=== PATIENT | male | born 1955 | race Hispanic/Latino ===

== ENCOUNTER 2018-04-01 17:00 | Emergency (ER) | payer OTHER ==
[~2018-04-01] VITALS: Ht 172.7 cm; Wt 72.6 kg
[2018-04-01] MEDS ORDERED: ASPIRIN 81 MG CHEW TAB PO ONE (17:30)
[2018-04-01 17:45] LABS: BASOPHILS % 0.3 % (0.0-1.0); EOSINOPHILS # (AUTO) 0.1 (0.0-0.4); EOSINOPHILS % 2.1 % (0.0-6.0); HEMATOCRIT 47.5 % (38.2-49.6); HEMOGLOBIN 15.3 g/dL (14.0-18.0); LYMPHOCYTES % 16.7 % (18.0-39.1); MEAN CORPUSCULAR HEMOGLOBIN 26.3 pg (28-32); MEAN CORPUSCULAR HGB CONC 32.2 g/dL (31-35); MEAN CORPUSCULAR VOLUME 81.6 fL (81-99); MONOCYTES # (AUTO) 0.6 (0.2-0.8); NEUTROPHILS % 69.6 % (38.7-80.0); PLATELET COUNT 300 x10e3/uL (140-360); RED BLOOD COUNT 5.82 x10e6/uL (4.3-5.7); RED CELL DISTRIBUTION WIDTH 15.4 % (11.7-14.4)
[2018-04-01 18:07] LABS: ALANINE AMINOTRANSFERASE 17 IU/L (0-55); ALKALINE PHOSPHATASE 104 IU/L (40-150); ANION GAP 17.2 mmol/L (8-16); BLOOD UREA NITROGEN 10 mg/dL (7-26); BUN/CREATININE RATIO 10 (6-25); CALCIUM 9.7 mg/dL (8.4-10.2); CARBON DIOXIDE 24 mmol/L (22-29); CHLORIDE 101 mmol/L (98-107); CREATINE KINASE 241 IU/L (30-200); CREATININE, SERUM 1.05 mg/dL (0.72-1.25); EST GLOMERULAR FILTRATION RATE > 60 ML/MIN (60-); GLUCOSE 104 mg/dL (74-118); POTASSIUM 4.2 mmol/L (3.5-5.1); SODIUM 138 mmol/L (136-145)
[2018-04-01 18:08] LABS: INR 0.97; PROTHROMBIN TIME 13.8 seconds (11.9-14.5)
[2018-04-01 18:09] LABS: PARTIAL THROMBOPLASTIN TIME 29.9 seconds (23.8-35.5)
--- NOTE | 2018-04-01 18:52 | Diagnostic Imaging Report ---
EXAMINATION: CHEST SINGLE (NOT PORTABLE) INDICATION: ^CHEST PAIN ^[id number] ^1810 ^Y COMPARISON: None FINDINGS: TUBES and LINES: None. LUNGS: Mild bilateral perihilar bronchial thickening. There is no evidence of pneumonia or pulmonary edema. PLEURA: No pleural effusion or pneumothorax. HEART AND MEDIASTINUM: The cardiomediastinal silhouette is unremarkable. BONES AND SOFT TISSUES: No acute osseous lesion. Soft tissues are unremarkable. UPPER ABDOMEN: No free air under the diaphragm. IMPRESSION: Mild bilateral perihilar bronchial thickening. Signed by: Dr. Maite Ramos M.D. on 04/01/2018 6:49 PM
[2018-04-01] MEDS ORDERED: ALBUTEROL/IPRATROPIUM 3 ML NEB NEB ONE (20:15)
[2018-04-01] MEDS ORDERED: PREDNISONE 20 MG TAB PO NR (20:15)
[2018-04-01] MEDS ORDERED: PREDNISONE 20 MG TAB ONE (20:17)
--- NOTE | 2018-04-01 20:23 | NUR ---
RT NOTIFIED FOR NEB
--- NOTE | 2018-04-01 21:12 | NUR ---
states feels better after medications, awake alert skin w/d resp nonlab. nad noted.
== END 2018-04-01 21:14 | disposition home or self-care (01) ==
LOC: ER 17:00
DX: R05 Cough (principal); R06.2 Wheezing; J15.9 Unspecified bacterial pneumonia
CPT/HCPCS: 36415; 71045; 80053; 82550; 82553; 83880; 84484; 85025; 85610; 85730; 93005; 94640; 99284; J7512

== ENCOUNTER 2019-02-08 14:46 | Observation (INO) | payer MEDICARE, OTHER ==
[~2019-02-08] VITALS: Ht 172.7 cm; Wt 70.4 kg
--- OUTSIDE RECORDS SUMMARY | 2019-02-08 14:48 | XMS REPORT ---
Author Author [facility] Organization [facility] Address Unknown Phone Unavailable Care Team Providers Care Commercial Technician Name Role Phone Ajit HEATH Unavailable Unavailable Payers Payer Name Policy Type Policy Number Effective Date Expiration Date Problems This patient has no known problems. Allergies, Adverse Reactions, Alerts Allergy Name Allergy Type Status Severity Reaction(s) Onset Date Inactive Date Treating Clinician Comments No Known Allergies DA Active U 2018-04-07 00:00:00 Medications This patient has no known medications. Results Test Description Test Time Test Comments Text Results Atomic Results Result Comments CHEST SINGLE (NOT PORTABLE) 2018-04-01 18:48:[address] [address] Patient Name: YANET WEEKS MR #: [id number] : 1955 Age/Sex: 62/M Req #: [id number] Adm Physician: Ordered by: SALINAS HEATH MD Report #: [id number] Location: ER Room/Bed: Procedure: [id number] DX/CHEST SINGLE (NOT PORTABLE) Exam Date: 04/01/18 Exam Time: 1809 REPORT STATUS: Signed EXAMINATION: CHEST SINGLE (NOT PORTABLE) INDICATION: CHEST PAIN [id number] 181 Y COMPARISON: None FINDINGS: TUBES and LINES: None. LUNGS: Mild bilateral perihilar bronchial thickening. There is no evidence of pneumonia or pulmonary edema. PLEURA: No pleural effusion or pneumothorax. HEART AND MEDIASTINUM: The cardiomediastinal silhouette is unremarkable. BONES AND SOFT TISSUES: No acute osseous lesion. Soft tissues are unremarkable. UPPER ABDOMEN: No free air under the diaphragm. IMPRESSION: Mild bilateral perihilar bronchial thickening. Signed by: Dr. Maite Martinez M.D. on 04/01/2018 6:49 PM Dictated By: SILVER MARTINEZ MD, MD 48 Transcribed By: ROXY on 04/01/181848 COPY TO: SALINAS HEATH MD
[2019-02-08] MEDS ORDERED: SODIUM CHLORIDE FLUSH 10 ML SYR INJ PRN (16:00)
--- NOTE | 2019-02-08 16:20 | Diagnostic Imaging Report ---
EXAMINATION: Head and face CT without contrast. HISTORY: Dizziness and headache, vertigo, asthma COMPARISON: None. TECHNIQUE: Multidetector axial images were obtained without contrast from the foramen magnum to the vertex and over the face. The images were reconstructed using brain and bone algorithms. Thin section brain images were reformatted into coronal and sagittal planes. Dose modulation, iterative reconstruction, and/or weight based adjustment of the mA/kV was utilized to reduce the radiation dose to as low as reasonably achievable. Head CT findings: Skull: No lytic or blastic lesions. No fractures. Parenchyma: Normal. No mass, hemorrhage or CT evidence of acute vascular insult. Brain volume: Normal for age. Ventricles: No hydrocephalus or displacement. Arteries: No density suggestive of thrombus. Dural sinuses: No abnormal density. Extra-axial spaces: No abnormal density. Foramen magnum: No mass, Chiari malformation, or basilar invagination. Sella: No obvious mass. Maxillofacial CT findings: Paranasal sinuses: Complete opacification of the bilateral frontal, ethmoid, maxillary and sphenoid sinuses, with associated minimal bone remodeling and expansion, there is also opacification of the bilateral nasal cavities with near complete obstruction dorsally, with possible polyposis extending through the caudate on the right side into the nasopharynx. In some areas the opacification is hyperdense, which may represent inspissated secretions versus noninvasive allergic fungal sinusitis. Paranasal sinuses drainage pathways: Remodeling with widening and complete opacification of the bilateral orchiectomy, frontonasal and particularly the sphenoid ethmoidal recesses. Nasal septum and nasal cavities: Right-sided nasal septal deviation. Possible remote fracture with a small bone defect along the anterior nasal septum. A large bone spur extending from the nasal posterior nasal septum into the right posterior nasal cavity, which could interfere with endoscopic nasal surgery. Bones: Unremarkable. Facial soft tissues: Unremarkable. Orbits contents: Unremarkable. Anatomic variations: No significant anatomic variations. Teeth: No acute abnormality of the visualized teeth. IMPRESSION: Head CT: No intracranial abnormalities. Face CT: 1. Severe pansinusitis and probable sinonasal polyposis with obstruction of the nasal cavities mainly on the right side. 2. Prominent right posterior nasal septum deviation with bone spur in the right posterior nasal passage as detailed above. ENT evaluation is advised. Signed by: Dr. Margaret Roberts M.D. on 02/08/2019 4:17 PM
--- NOTE | 2019-02-08 16:21 | NUR ---
Called [facility] for transport to room 287
[2019-02-08] MEDS ORDERED: ONDANSETRON HCL INJ 2MG/ML 2ML 2 MG/ML VIAL ONE (16:28)
[2019-02-08] MEDS ORDERED: METOPROLOL TARTRATE 50 MG TAB ONE (16:28)
[2019-02-08] MEDS: METOPROLOL TARTRATE 25 MG TAB PO SCH (16:30)
[2019-02-08] MEDS ORDERED: ONDANSETRON HCL INJ 2MG/ML 2ML 2 MG/ML VIAL IV STA (16:34)
[2019-02-08] MEDS ORDERED: ACETAMINOPHEN 325 MG TAB PO PRN (16:45)
[2019-02-08] MEDS ORDERED: DIPHENHYDRAMINE HCL 25 MG CAP PO PRN (16:45)
[2019-02-08] MEDS ORDERED: CLONIDINE HCL 0.1 MG TAB PO PRN (16:45)
[2019-02-08] MEDS ORDERED: ENALAPRILAT IV INJ 1.25 MG/ML VIAL IV PRN (16:45)
[2019-02-08] MEDS ORDERED: IBUPROFEN 200 MG TAB PO PRN (16:45)
--- NOTE | 2019-02-08 16:49 | NUR ---
Report called to JAYE Christian
--- NOTE | 2019-02-08 18:07 | NUR ---
PATIENT RECEIVED FROM [facility] PER STRETCHER. ALERT AND VERBALLY RESPONSIVE, ABLE TO ASSIST WITH TRANSFER FROM STRETCHER TO BED. SKIN WARM AND DRY TO TOUCH, RESPIRATION EVEN AND UNLABORED WITH A SMALL NODULE NOTED TO RIGHT NOSTRIL. ABDOMEN SOFT AND NON DISTENDED WITH + BS X 4 QUADS. YELLOW SOCKS APPLIED. BED IN LOWER POSITION, CALL LIGHT AT REACH.
[2019-02-08 18:09] VITALS: BP 161/92
[2019-02-08 18:10] VITALS: BP 161/92
--- NOTE | 2019-02-08 19:28 | NUR ---
Assessment done.no rep.distress.no pain voiced.aaox4.iv to left Ac #20 is patent.had a small amount of bm.bed locked and in lowest position.phone and call light within reach.instructed to call for assistance as needed.
[2019-02-08 20:00] VITALS: BP 137/79
[2019-02-08 21:00] VITALS: BP 137/79
[2019-02-08] MEDS ORDERED: ZOLPIDEM TARTRATE 5 MG TAB PO PRN (21:00)
--- NOTE | 2019-02-08 22:07 | NUR ---
No home med list noted.patient stated that will bring the list tomorrow morning.
[2019-02-09] VITALS (8 sets, daily range): BP systolic 120–139; BP diastolic 75–84
--- NOTE | 2019-02-09 04:00 | NUR ---
Resting in the bed.no pain voiced.stable condition.
[2019-02-09] MEDS: METOPROLOL TARTRATE 25 MG TAB PO SCH ×2 (04:45→18:17)
[2019-02-09 06:06] LABS: CHOL/HDL RATIO 5.3 (3.9-4.7)
--- NOTE | 2019-02-09 07:00 | NUR ---
Bed side shift report given to the oncoming rn.stable condition.
--- NOTE | 2019-02-09 07:01 | NUR ---
walking rounds completed with cage shift manager rn; pt in stable condition, will continue to monitor.
[2019-02-09] MEDS ORDERED: THEOPHYLLINE A200 MG PO (11:15)
[2019-02-09] MEDS ORDERED: OMEPRAZOLE40 MG PO (11:15)
[2019-02-09] MEDS ORDERED: MONTELUKAST SOD10 MG PO (11:15)
[2019-02-09] MEDS ORDERED: FLUTICASONE-SA1 EAC3 INH (11:15)
--- NOTE | 2019-02-09 14:27 | Diagnostic Imaging Report ---
History: Dizziness Comparison studies: None Technique: Sagittal T2; axial DWI, FLAIR, MPGR, T1, Coronal FLAIR. Intravenous contrast: None Findings: Scalp: Normal in signal . No masses . Bone marrow: Normal in signal intensity. Extra-axial: No masses, no fluid collections. Brain sulci: Appropriate for age. Ventricles: Normal in size . No hydrocephalus . Parenchyma: Subtle hazy T2/FLAIR hyperintensities of the bilateral parietal white matter, most commonly seen with mild chronic microvascular ischemic changes No masses, hemorrhage, acute or chronic vascular insults. Suprasellar region: No abnormalities. Craniocervical junction: No abnormalities. Patent foramen magnum. No Chiari one malformation. Vessels: Normal flow-voids in the arteries and sinuses. Diffuse occupation of the paranasal sinuses. IMPRESSION: 1. No acute intra-abnormalities. 2. Mild chronic microvascular ischemic changes of the white matter. 3. Pansinusitis Signed by: DR Anil Mcdonald M.D. on 02/09/2019 2:24 PM
[2019-02-09] MEDS ORDERED: MONTELUKAST SODIUM 10 MG TAB PO SCH (17:00)
--- NOTE | 2019-02-09 17:47 | Consultation ---
DATE OF CONSULTATION: 02/09/2019 CONSULTING PHYSICIAN: Dr. Du Chin. CHIEF COMPLAINT: Sinonasal problems and dizziness. HISTORY OF PRESENT ILLNESS: The patient is a 63-year-old male, who presented to the [facility] Emergency Room yesterday with 2 days history of dizziness. The dizziness is described as an imbalance sensation lasting all day, worse after arising. He denies otalgia, otorrhea, or any recent hearing changes. The patient notes that he has had 6 months history of worsening bilateral nasal obstruction associated with copious clear rhinorrhea from both nasal cavities. He denies epistaxis or facial pain. He has had no previous sinus or nasal surgery. PAST MEDICAL HISTORY: Sinonasal polyps. Asthma. GERD. ALLERGIES: HE HAS ALLERGIES TO PENICILLIN. MEDICATIONS (home): theophylline, montelukast, fluticasone nasal spray, fluticasone inhaler, ranitidine, and omeprazole. PAST SURGICAL HISTORY: Tonsillectomy. Right hip replacement. SOCIAL HISTORY: He is a nonsmoker and nondrinker. DIAGNOSTIC DATA: Review of the CT sinus performed yesterday revealed total opacification of all of the sinuses with soft tissue masses in both nasal cavities (consistent with polyps) with deviated septum to the right. There does not appear to be any overt bony dehiscence or any extension of sinonasal disease intracranially. PHYSICAL EXAMINATION: GENERAL: The patient appears of stated age, in no apparent distress. He is unable to breathe out of his nose. HEENT: Ear exam reveals thickened tympanic membranes, but with no overt evidence of infection. Nasal cavities revealed significant polyps filling both nasal cavities, but worse on the right than the left. Oral cavity, oropharynx is clear. NECK: Supple with full range of motion. Markos-Hallpike was negative. The patient experienced minimal lightheadedness after arising quickly. ASSESSMENT: 1. Bilateral nasal obstruction due to sinonasal polyposis. 2. Dizziness due to uncertain etiology. His dizziness symptoms appear clinically consistent with possible cardiovascular etiology though neurologic etiology or an inner ear pathology cannot be ruled out. RECOMMENDATIONS: 1. I recommend the patient follow up with me as an outpatient to further evaluate and manage the sinonasal disease. 2. Recommend further thorough cardiovascular and neurologic evaluations to evaluate the dizziness. MD Cailin VelasquezKY/MODL /[id number] MTDD
[2019-02-09] MEDS: THEOPHYLLINE 300 MG TABSR PO SCH (18:17)
[2019-02-09] MEDS ORDERED: ALBUTEROL/IPRATROPIUM 3 ML NEB NEB SCH (19:00)
[2019-02-09] MEDS ORDERED: FLUTICASONE SALMETEROL INH SCH (19:00)
--- NOTE | 2019-02-09 19:10 | NUR ---
Received patient awake in bed, call light within easy reach, advised to call for assistance anytime when needed. Will continue to monitor accordingly.
--- NOTE | 2019-02-09 21:43 | Consultation ---
DATE OF CONSULTATION: 02/09/2019 Neurology Consult Note HISTORY OF PRESENT ILLNESS: Mr. Peter is a 63-year-old right-hand dominant man with past medical history significant for asthma and chronic sinusitis, admitted to [facility] under observation status on February 08, 2019, with multiple symptoms, including dizziness. A Neurology consultation is requested for further evaluation and treatment of dizziness. For two days prior to admission, the patient experienced intermittent dizziness, which he further describes as a sensation of imbalance. Mr. Peter does not endorse lightheadedness nor a vertiginous sensation. The patient reports the dizziness was triggered by movement, especially quick movements of the head. If he is able to stay still or move slowly, the dizziness does not occur. Other symptoms associated with the dizziness include: Blurred vision, nausea without vomiting. Mr. Peter does not report a severe headache associated with the above symptoms, he does not report dysarthria, aphasia, facial droop, hemiparesis, hemihypesthesia, or confusion associated with the above symptoms. Mr. Peter has experienced similar symptoms previously, but these symptoms were brief in duration (less than one day). However, the dizziness described above persisted for two days. Of note, Mr. Peter reports the dizziness and associated symptoms have resolved at present. The patient has been able to move around his room without difficulty throughout the day. Other symptoms endorsed by the patient include shortness of breath, nasal congestion, and postnasal drip. Due to the presence of these symptoms as well as dizziness, Mr. Peter was admitted to [facility] under observation status on February 08, 2019, for further evaluation and treatment of his symptoms. REVIEW OF SYSTEMS: Nasal congestion, shortness of breath, nausea, postnasal drip, blurred vision, dizziness. Otherwise, a 12-point review of systems is negative. PAST MEDICAL HISTORY: Asthma, chronic sinusitis, history of retinal detachment. PAST SURGICAL HISTORY: Right hip replacement in 1994, tonsillectomy in childhood, bilateral cataract removal, repair of retinal detachment x2. PAST HOSPITALIZATIONS: Surgeries/procedures as listed. FAMILY MEDICAL HISTORY: Multiple paternal family members have/had diabetes mellitus. The patient's father is from coronary artery disease. The patient's mother has/had tuberculosis. Mr. Peter reports he has not seen his mother since he was 2 years old. He does not know if she is alive or if she has other medical problems. Mr. Peter have two siblings, both brothers, both of whom are still alive. One brother has a history of prostate cancer. Mr. Peter has one daughter, who is alive and has asthma. SOCIAL HISTORY: Mr. Peter is . 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 The patient reports a remote history of tobacco use, but quit smoking cigarettes 40+ years ago. Mr. Peter does not report current or prior alcohol or recreational drug use. HOME MEDICATIONS: 1. Montelukast sodium 10 mg by mouth daily. 2. Theophylline 300 mg by mouth twice daily. 3. Omeprazole 20 mg by mouth daily. 4. Fluticasone-salmeterol one puff inhaled twice daily. HOSPITAL MEDICATIONS: 1. Tylenol. 2. Catapres. 3. Benadryl. 4. Vasotec. 5. Ibuprofen. 6. Metoprolol. 7. Montelukast sodium. 8. Pantoprazole. 9. Theophylline. 10. Ambien. ALLERGIES: PENICILLIN. NO KNOWN FOOD ALLERGIES. NO KNOWN ALLERGIES TO LATEX. NO KNOWN ALLERGIES TO IODINE OR OTHER CONTRAST MATERIALS. PHYSICAL EXAMINATION: VITAL SIGNS: Height 68 inches, weight 155 pounds, BMI 23.6 kg/m2, blood pressure 126/83 mmHg, pulse 68 beats per minute, respiratory rate 20 breaths per minute, and oxygen saturation 98% on room air. GENERAL: The patient is awake and alert, does not appear distressed. Normal body habitus. HEENT: Normocephalic, atraumatic. Pupils are surgical. Moist mucous membranes. NECK: Supple. No appreciable thyromegaly. No appreciable carotid bruits. CARDIOVASCULAR: S1, S2, regular rate and rhythm. No murmurs, rubs, or gallops. RESPIRATORY: Faint inspiratory wheezing is auscultated throughout bilaterally. EXTREMITIES: The skin is warm and dry. No clubbing, cyanosis, or edema. The posterior tibial and dorsalis pedis pulses are 2+ and symmetric. SKIN: No rashes or lesions. NEUROLOGIC: Memory/Attention: The patient is awake and alert, oriented to person, place, time, and situation. Cranial Nerves: Cranial nerve I - not tested. Cranial nerve II, III, IV, and - pupils are surgical. Extraocular movements intact. No nystagmus. Cranial nerve V - sensation to light touch and pinprick is intact in the bilateral V1 through V3 distributions. Strength in the temporalis and masseter muscles is within normal limits. Cranial nerve VII - the face is symmetric as are all facial movements. Strength is within normal limits. Cranial nerve VIII - hearing is intact to finger rub bilaterally. Cranial nerve XI, X - the soft palate elevates equally and symmetrically. Cranial nerve XI - normal strength of the bilateral sternocleidomastoid and trapezius muscles. Cranial nerve XII - the tongue protrudes midline and moves symmetrically from [id number]. Strength: Bulk is normal. Strength is 5/5 in the bilateral deltoids, biceps, triceps, wrist flexors and extensors, finger flexors and extensors, intrinsic hand muscles, hip flexors, knee flexors and extensors, ankle dorsiflexion and plantar flexion, and intrinsic foot muscles. Tone is normal. DTRs: Deep tendon reflexes are 2+ and symmetric at the triceps, biceps, brachioradialis, patellas, and Achilles. Plantar responses are flexor bilaterally. Sensation: Sensation is intact to light touch and pinprick in both arms and both legs. Cerebellar: [id number] and heel-robles movements are intact without dysmetria or other impairment. Gait: Deferred. Speech: Spontaneous speech is normal without appreciable dysarthria or aphasia. Repetition is intact. Involuntary movements: None. Pronator Drift: None. LABORATORY DATA: A comprehensive metabolic panel and complete blood count with platelets was within normal limits on February 08, 2019. Total cholesterol 197, triglycerides 141, LDL cholesterol 132, HDL cholesterol 37. DIAGNOSTIC STUDIES: CT of the brain 02/08/2019: On my review, there is no evidence of recent or remote large territorial ischemia, hemorrhage, mass, or mass effect. Cerebral volumes are appropriate for age. There are no findings suggestive of chronic small vessel ischemic disease. Maxillofacial CT 02/08/2019: Severe pansinusitis and probable sinonasal polyposis with obstruction of the nasal cavities mainly on the right side. Prominent right posterior nasal septal deviation with bone spur in the right posterior nasal passage as detailed above. ENT evaluation is advised. Electrocardiogram on 02/08/2019: Normal sinus rhythm at 76 beats per minute. Echocardiogram 02/09/2019: Ejection fraction is 55%. No significant valvular abnormalities were noted. Bilateral carotid artery ultrasound with Doppler 02/09/2019: There is no atherosclerosis in the right carotid artery system. There is atherosclerosis without hemodynamically significant stenosis of the left carotid bulb and left carotid bifurcation. Flow is antegrade in the bilateral vertebral arteries. MRI of the brain without contrast 02/09/2019: On my review, there is no evidence of recent or remote large territorial ischemia, hemorrhage, mass, or mass effect. Cerebral volumes are appropriate for age. There are scattered nonspecific T2/FLAIR hyperintense foci throughout the supratentorial white matter, compatible with mild chronic small-vessel ischemic disease. Pansinusitis as noted on maxillofacial CT. ASSESSMENT AND PLAN: Mr. Peter is a 63-year-old right-hand dominant man with past medical history significant for asthma and chronic sinusitis, admitted to [facility] on February 08, 2019, under observation status with multiple symptoms, including dizziness. At present, the patient's neurological examination is nonfocal. The patient's laboratory data and other diagnostic studies have been reviewed and are documented above. Based on his description of his symptoms, I strongly suspect the patient had benign paroxysmal positional vertigo of an unspecified ear, which is since resolved. As Mr. Peter is not currently symptomatic, no further evaluation or treatment is recommended. However, should his symptoms recur, consider treatment with meclizine 25 mg by mouth 3 times daily as needed for dizziness and/or a referral to outpatient physical therapy for vestibular exercises. Thank you for this consultation. There are no other recommendations from the Neurology Service at this time. Please call again with any questions or concerns. TIME SPENT: 70 minutes. Lachelle Paz MD CP/CORRY /[id number] BEENA
[2019-02-10 00:39] VITALS: BP 140/79
[2019-02-10] MEDS: METOPROLOL TARTRATE 25 MG TAB PO SCH (04:00)
[2019-02-10 05:16] VITALS: BP 122/81
--- NOTE | 2019-02-10 06:35 | NUR ---
walking rounds done with RN, call light within easy reach
--- NOTE | 2019-02-10 06:56 | NUR ---
RECEIVED AM REPORT FROM NURSE AND MORNING ROUNDS DONE. PT IS SLEEPING, NO S/S OF DISTRESS. CALL LIGHT WITHIN REACH, SIDE RAILS UP
[2019-02-10 07:05] VITALS: BP 134/75
[2019-02-10] MEDS ORDERED: PANTOPRAZOLE SOD 40 MG TABEC PO SCH (07:30)
[2019-02-10] MEDS: THEOPHYLLINE 300 MG TABSR PO SCH (08:53)
[2019-02-10] MEDS ORDERED: MECLIZINE HCL 12.5 MG TAB PO SCH (09:00)
[2019-02-10 09:46] VITALS: BP 134/75
[2019-02-10 11:11] VITALS: BP 131/69
[2019-02-10 15:15] VITALS: BP 144/85
== END 2019-02-10 16:55 | disposition home or self-care (01) ==
LOC: FSED 14:46 → ERHOLD 16:01 → MED/SURG3 18:00
DX: H81.01 Meniere's disease, right ear (principal); J33.8 Other polyp of sinus; I10 Essential (primary) hypertension; J01.90 Acute sinusitis, unspecified; J34.2 Deviated nasal septum; Z88.0 Allergy status to penicillin; J44.9 Chronic obstructive pulmonary disease, unspecified
CPT/HCPCS: 36415; 70450; 70486; 70551; 80053; 80061; 85025; 93005; 93306; 93880; 96374; 99284; G0378 ×3; J2405; J8597; S0164

== ENCOUNTER 2021-04-03 10:03 | Emergency (ER) | payer MEDICARE, OTHER ==
[~2021-04-03] VITALS: Ht 172.7 cm; Wt 70.3 kg
[~2021-04-03 10:03] MED LIST: FLUTICASONE-SA1 EAC3 INH; MONTELUKAST SOD10 MG PO; OMEPRAZOLE40 MG PO; THEOPHYLLINE A200 MG PO
== END 2021-04-03 13:25 | disposition home or self-care (01) ==
LOC: ER 10:06
DX: J40 Bronchitis, not specified as acute or chronic (principal); R05.1 Acute cough; R51.9 Headache, unspecified; R09.81 Nasal congestion; Z20.822 Contact with and (suspected) exposure to COVID-19
CPT/HCPCS: 71045; 99283; U0002

== ENCOUNTER 2024-03-31 04:55 | Emergency (ER) | payer MEDICARE ==
[~2024-03-31] VITALS: Ht 172.7 cm; Wt 74.8 kg
[~2024-03-31 04:55] MED LIST changes: +AZITHROMYCIN250 MG PO; +PREDNISONE20 MG PO; +VENTOLIN HFA18 GM INH
[2024-03-31 05:00] VITALS: PULSE 97; RESP 19; TEMP 98.5; O2SAT 98
[2024-03-31] MEDS: LIDOCAINE JELLY 2% 10ML URO-JET TOP ONE (05:30)
[2024-03-31 05:51] LABS: BILIRUBIN,URINE NEGATIVE (NEGATIVE); CLARITY,URINE CLEAR (CLEAR); COLOR,URINE YELLOW (YELLOW); GLUCOSE, URINE NEGATIVE (NEGATIVE); KETONES,URINE NEGATIVE (NEGATIVE); LEUKOCYTE ESTERASE ,URINE NEGATIVE (NEGATIVE); NITRITE,URINE NEGATIVE (NEGATIVE); PH,URINE 6 (5 - 7); PROTEIN,URINE DIPSTICK NEGATIVE (NEGATIVE); URINE UROBILINOGEN 0.2 mg/dL (0.2 - 1)
[2024-03-31 06:14] LABS: BACTERIA,URINE FEW /HPF; RBC,URINE 0-5 /HPF (0-5); WBC,URINE (MAN) 21-50 /HPF (0-5)
== END 2024-03-31 06:00 | disposition home or self-care (01) ==
LOC: ER 05:13
DX: R33.9 Retention of urine, unspecified (principal); N40.1 Benign prostatic hyperplasia with lower urinary tract symptoms; J45.909 Unspecified asthma, uncomplicated; Z96.641 Presence of right artificial hip joint
CPT/HCPCS: 51700; 81001; 87086; 99283

== ENCOUNTER 2024-05-19 15:17 | Emergency (ER) | payer MEDICARE ==
[~2024-05-19] VITALS: Ht 172.7 cm; Wt 74.8 kg
[2024-05-19 15:35] VITALS: TEMP 98.3
[2024-05-19 16:08] LABS: BASOPHILS % 0.4 % (0.0-1.0); EOSINOPHILS # (AUTO) 0.6 (0.0-0.4); EOSINOPHILS % 8.9 % (0.0-6.0); HEMATOCRIT 31.9 % (38.2-49.6); HEMOGLOBIN 10.1 g/dL (14.0-18.0); LYMPHOCYTES # (AUTO) 1.1 (1.0-3.2); LYMPHOCYTES % 14.7 % (18.0-39.1); MEAN CORPUSCULAR HEMOGLOBIN 25.4 pg (28-32); MEAN CORPUSCULAR HGB CONC 31.7 g/dL (31-35); MEAN CORPUSCULAR VOLUME 80.2 fL (81-99); MONOCYTES # (AUTO) 0.5 (0.2-0.8); MONOCYTES % 6.7 % (4.4-11.3); NEUTROPHILS % 69.2 % (38.7-80.0); PLATELET COUNT 386 x10e3/uL (140-360); RED BLOOD COUNT 3.98 x10e6/uL (4.3-5.7); RED CELL DISTRIBUTION WIDTH 13.3 % (11.7-14.4); WHITE BLOOD COUNT 7.16 x10e3/uL (4.8-10.8)
[2024-05-19 16:27] LABS: ANION GAP 15.8 mmol/L (8-16); CALCIUM 9.2 mg/dL (8.4-10.2); CREATININE, SERUM 1.1 mg/dL (0.72-1.25); POTASSIUM 3.8 mmol/L (3.5-5.1)
[2024-05-19 16:44] LABS: INFLUENZA A AG NEGATIVE (NEGATIVE); INFLUENZA B AG NEGATIVE (NEGATIVE)
[2024-05-19 16:45] LABS: CORONAVIRUS COVID-19 AG NEGATIVE (NEGATIVE)
[2024-05-19] MEDS ORDERED: MEDROL4 M2 PO (17:45)
[2024-05-19] MEDS: SODIUM CHLORIDE 0.9% 1000ML 1,000 ML IV SCH (17:46)
[2024-05-19] MEDS: DEXAMETHASONE SOD PHOS 10 MG/1 ML VIAL IV ONE (17:49)
[2024-05-19 17:52] LABS: CLARITY,URINE CLOUDY (CLEAR); COLOR,URINE YELLOW (YELLOW)
[2024-05-19 17:53] VITALS: PULSE 81; RESP 16
[2024-05-19 17:53] LABS: BILIRUBIN,URINE NEGATIVE (NEGATIVE); GLUCOSE, URINE NEGATIVE (NEGATIVE); KETONES,URINE NEGATIVE (NEGATIVE); LEUKOCYTE ESTERASE ,URINE SMALL (NEGATIVE); NITRITE,URINE NEGATIVE (NEGATIVE); PH,URINE 5.5 (5 - 7); PROTEIN,URINE DIPSTICK 2+ (NEGATIVE); URINE UROBILINOGEN 0.2 mg/dL (0.2 - 1)
[2024-05-19 17:54] LABS: BACTERIA,URINE MANY /HPF; EPITHELIAL CELLS,URINE RARE /LPF; RBC,URINE 21-50 /HPF (0-5); WBC,URINE (MAN) >50 /HPF (0-5)
[2024-05-19] MEDS ORDERED: CEFDINIR300 MG PO (18:01)
[2024-05-19 18:18] VITALS: BP 148/83; PULSE 85; RESP 16; TEMP 98.4; O2SAT 100
== END 2024-05-19 18:13 | disposition home or self-care (01) ==
LOC: ER 15:54
DX: R06.02 Shortness of breath (principal); N39.0 Urinary tract infection, site not specified; R53.1 Weakness; E78.5 Hyperlipidemia, unspecified; J45.909 Unspecified asthma, uncomplicated; N40.0 Benign prostatic hyperplasia without lower urinary tract symptoms; Z11.52 Encounter for screening for COVID-19; R94.31 Abnormal electrocardiogram [ECG] [EKG]; Z96.641 Presence of right artificial hip joint
CPT/HCPCS: 36415; 71046; 80048; 81001; 83880; 84484; 85025; 87086; 87428; 93005; 99284; J1100

== ENCOUNTER 2025-01-11 09:45 | Emergency (ER) | payer MEDICARE ==
[~2025-01-11 09:45] MED LIST changes: +CEFDINIR300 MG PO; +MEDROL4 M2 PO
== END 2025-01-11 10:00 | disposition short-term general hospital (02) ==
LOC: ER 10:00
DX: R09.89 Other specified symptoms and signs involving the circulatory and respiratory systems (principal)